=== PATIENT | female | born 1955 | race African-American/Black ===

== ENCOUNTER 2024-01-27 04:56 | Inpatient (IN) | payer OTHER ==
[2024-01-27] MEDS ORDERED: ONDANSETRON 4 MG/2 ML VIAL ONE (05:39)
[2024-01-27] MEDS ORDERED: ACETAMINOPHEN INJECTION 100 ML IVPB ONE (05:39)
[2024-01-27] MEDS: ONDANSETRON 4 MG/2 ML VIAL IVPUSH ONE (05:46)
[2024-01-27] MEDS: ACETAMINOPHEN 1000 MG/100 ML BAG IVPB ONE (05:46)
[2024-01-27 06:01] LABS: BASO % 0.8 % (0-2.0); EOS % 0.8 % (0-4.5); HEMOGLOBIN 10.2 GM/dL (10.7-15.3); LYMPH % 21.1 % (8-40); MCH 29.3 pg (25.7-33.7); MCHC 32.9 g/dl (32.0-36.0); MEAN CELL VOLUME 89.1 fl (80-96); MEAN PLT VOLUME 8.8 fl (7.5-11.1); MONO % 6.7 % (3.8-10.2); NEUT % 70.6 % (42.8-82.8); PLATELET COUNT 206 10^3/uL (134-434); RBC 3.47 M/mm3 (3.60-5.2); RDW 13.1 % (11.6-15.6); WHITE BLOOD COUNT 7.5 K/mm3 (4.0-10.0)
[2024-01-27 06:26] LABS: PROTHROMBIN TIME (PATIENT) 11.3 SEC (9.7-13.0)
[2024-01-27 06:28] LABS: ACTIVATED PTT 31.8 SECONDS (25.2-36.5)
[2024-01-27] MEDS ORDERED: MAGNESIUM SULFATE IN WATER 2 GM/50 ML IVPB IVPB ONE ×2 (06:45→13:27)
[2024-01-27] MEDS: MAGNESIUM 1GM/D5W - 1 GM/100 ML IVPB IVPB ONE (08:00)
[2024-01-27 09:38] LABS: EPI CELLS 2 /uL (0-25.1); HYALINE CASTS 0 /uL (0-3.1); PH,URINE 6.5 (5.0-8.0); URINE APPEARANCE CLEAR; URINE BACTERIA 34 /uL (0-1359); URINE BILIRUBIN NEGATIVE (NEGATIVE); URINE COLOR YELLOW; URINE GLUCOSE (UA) 1+ (NEGATIVE); URINE KETONE NEGATIVE (NEGATIVE); URINE LEUK ESTERASE TRACE (NEGATIVE); URINE NITRITE NEGATIVE (NEGATIVE); URINE PROTEIN NEGATIVE (NEGATIVE); URINE RBC 11 /uL (0-23.9); URINE UROBILINOGEN 0.2 mg/dL (0.2-1.0); URINE WBC 10 /uL (0-25.8)
[2024-01-27] MEDS ORDERED: ACETAMINOPHEN 325 MG TABLET (FP) PO PRN (13:17)
[2024-01-27] MEDS ORDERED: PANTOPRAZOLE 40 MG TABLET PO ONE (13:26)
[2024-01-27] MEDS: PANTOPRAZOLE 40 MG TABLET PO SCH (13:38)
[2024-01-27] MEDS: MAGNESIUM SULF 50% (8.12 MEQ/2 ML-1 GM VIAL) IVPB ONE (13:38)
[2024-01-27 16:07] VITALS: RESP 18
[2024-01-27 16:34] VITALS: BMI 20.8
[2024-01-27] MEDS: D5-1/2NS+10 MEQ KCL - 10 MEQ/1,000 ML INFUS.BAG IV SCH (17:10)
[2024-01-27] MEDS: INSULIN ASPART SLIDING SCALE (NOVOLOG) 1 VIAL SQ SCH (17:14)
[2024-01-27] MEDS: HEPARIN NA (PORCINE) 5,000 UNITS/ML 1ML VIAL SQ SCH (17:15)
[2024-01-27] MEDS: IRON SUCROSE INJECTION 300 MG in SODIUM CHLORIDE 235 ML IVPB ONE (18:04)
[2024-01-28 02:13] VITALS: BP 147/78; PULSE 72; TEMP 98.2
[2024-01-28 07:40] LABS: BASO % 0.9 % (0-2.0); EOS % 1.5 % (0-4.5); HEMATOCRIT 31.1 % (32.4-45.2); HEMOGLOBIN 10.5 GM/dL (10.7-15.3); LYMPH % 32.8 % (8-40); MCH 30.1 pg (25.7-33.7); MCHC 33.8 g/dl (32.0-36.0); MONO % 7.4 % (3.8-10.2); NEUT % 57.4 % (42.8-82.8); PLATELET COUNT 223 10^3/uL (134-434); RBC 3.49 M/mm3 (3.60-5.2); RDW 12.9 % (11.6-15.6); WHITE BLOOD COUNT 6.3 K/mm3 (4.0-10.0)
[2024-01-28 07:41] LABS: POTASSIUM 3.5 mmol/L (3.5-5.1)
[2024-01-28 07:43] LABS: BLOOD UREA NITROGEN 13.4 mg/dL (7-18); CALCIUM 9.4 mg/dL (8.5-10.1); MAGNESIUM 2.1 mg/dL (1.8-2.4)
[2024-01-28 07:46] LABS: CREATININE 0.7 mg/dL (0.55-1.3)
== END 2024-01-28 14:37 | disposition home or self-care (01) | DRG 312 ==
LOC: JER 04:56 → JERBED 06:09 → OBSVTOIN 13:07 → J4W 15:20
PROVIDERS: ADMIT Internal Medicine; ATTEND Internal Medicine
DX: R55 Syncope and collapse (principal); I10 Essential (primary) hypertension; E11.9 Type 2 diabetes mellitus without complications; F03.90 Unspecified dementia, unspecified severity, without behavioral disturbance, psychotic disturbance, mood disturbance, and anxiety; E86.0 Dehydration; E83.42 Hypomagnesemia
CPT/HCPCS: 0241U-QW; 36415; 70450-TC; 71045-TC-FY; 72125-TC; 72170-TC-FY; 73030-TC-LT-FY; 80048; 81003; 82607; 82728; 82962; 83540; 83550; 83735; 84484; 85025; 85610; 85730; 86850; 86900; 86901; 87086; 93005; 93010; 93306-TC; 93880-TC; 97116-GP; 97161-GP; 99285-25; G0378; J0131; J1644; J1756

== ENCOUNTER 2024-02-02 12:47 | Emergency (ER) | payer OTHER ==
[2024-02-02 13:35] VITALS: TEMP 99; BMI 19.3
[2024-02-02 14:42] LABS: EOS % 1.6 % (0-4.5); HEMATOCRIT 31.9 % (32.4-45.2); HEMOGLOBIN 10.5 GM/dL (10.7-15.3); LYMPH % 30.1 % (8-40); MCHC 32.8 g/dl (32.0-36.0); MEAN CELL VOLUME 88.5 fl (80-96); MEAN PLT VOLUME 8.1 fl (7.5-11.1); MONO % 7.8 % (3.8-10.2); NEUT % 59.5 % (42.8-82.8); PLATELET COUNT 225 10^3/uL (134-434); RDW 13.3 % (11.6-15.6)
[2024-02-02 15:08] LABS: POTASSIUM 3.7 mmol/L (3.5-5.1)
[2024-02-02 15:11] LABS: CALCIUM 10.2 mg/dL (8.5-10.1)
[2024-02-02 15:12] LABS: ALBUMIN 3.5 g/dl (3.4-5.0); BLOOD UREA NITROGEN 19.2 mg/dL (7-18)
[2024-02-02 15:15] LABS: CREATININE 0.8 mg/dL (0.55-1.3)
[2024-02-02 15:16] LABS: BILIRUBIN,TOTAL 0.4 mg/dL (0.2-1)
[2024-02-02] MEDS ORDERED: ONDANSETRON 4 MG/2 ML VIAL ONE (17:50)
[2024-02-02] MEDS: ONDANSETRON 4 MG/2 ML VIAL IVPUSH ONE (17:55)
[2024-02-02 18:47] VITALS: BP 135/64; PULSE 69; RESP 18
== END 2024-02-03 00:56 ==
LOC: JER 12:47
PROC: 3E033GC Introduction of Other Therapeutic Substance into Peripheral Vein, Percutaneous Approach (ICD-10-PCS; principal; 2024-02-02)
DX: S09.90XA Unspecified injury of head, initial encounter (principal); M25.511 Pain in right shoulder; W01.198A Fall on same level from slipping, tripping and stumbling with subsequent striking against other object, initial encounter; Z20.822 Contact with and (suspected) exposure to COVID-19
CPT/HCPCS: 0241U-QW; 36415; 70450-TC; 71045-TC-FY; 72125-TC; 73030-TC-RT-FY; 80053; 84484; 85025; 96374; 99285-25

== ENCOUNTER 2024-03-08 02:31 | Inpatient (IN) | payer OTHER ==
[2024-03-08 02:51] VITALS: BMI 24.2
[2024-03-08] MEDS ORDERED: ONDANSETRON 4 MG/2 ML VIAL ONE ×2 (03:10→08:24)
[2024-03-08] MEDS: ONDANSETRON 4 MG/2 ML VIAL IVPUSH ONE (03:13)
[2024-03-08 03:19] LABS: EOS % 1.4 % (0-4.5); HEMATOCRIT 32.4 % (32.4-45.2); HEMOGLOBIN 10.7 GM/dL (10.7-15.3); LYMPH % 30.9 % (8-40); MCHC 33.1 g/dl (32.0-36.0); MEAN CELL VOLUME 87.9 fl (80-96); MEAN PLT VOLUME 8.5 fl (7.5-11.1); NEUT % 59.7 % (42.8-82.8); PLATELET COUNT 221 10^3/uL (134-434); RBC 3.68 M/mm3 (3.60-5.2); WHITE BLOOD COUNT 6.2 K/mm3 (4.0-10.0)
[2024-03-08 03:26] LABS: INR 0.91 (0.83-1.09); PROTHROMBIN TIME (PATIENT) 10.3 SEC (9.7-13.0)
[2024-03-08 03:28] LABS: ACTIVATED PTT 30.7 SECONDS (25.2-36.5)
[2024-03-08 03:58] LABS: ALBUMIN 3.6 g/dl (3.4-5.0); BLOOD UREA NITROGEN 19.9 mg/dL (7-18); CALCIUM 9.7 mg/dL (8.5-10.1)
[2024-03-08 04:03] LABS: CREATININE 0.9 mg/dL (0.55-1.3)
[2024-03-08 04:04] LABS: BILIRUBIN,TOTAL 0.4 mg/dL (0.2-1); TOT PROT 7.2 g/dl (6.4-8.2)
[2024-03-08] MEDS ORDERED: INSULIN ASPART SLIDING SCALE (NOVOLOG) 1 VIAL SQ ONE ×2 (08:25→18:08)
[2024-03-08] MEDS: ONDANSETRON 4 MG/2 ML VIAL IVPUSH PRN (08:32)
[2024-03-08] MEDS: INSULIN ASPART SLIDING SCALE (NOVOLOG) 1 VIAL SQ SCH (08:32)
[2024-03-08] MEDS ORDERED: HYDROCHLOROTHIAZIDE 25 MG TABLET (FP) ONE (11:16)
[2024-03-08] MEDS ORDERED: LOSARTAN POTASSIUM 50 MG TABLET ONE (11:16)
[2024-03-08] MEDS ORDERED: amLODIPine BESYLATE 10 MG TABLET (FP) ONE (11:17)
[2024-03-08] MEDS ORDERED: PANTOPRAZOLE SODIUM 40 MG VIAL ONE (11:17)
[2024-03-08] MEDS: amLODIPine BESYLATE 10 MG TABLET (FP) PO SCH (11:50)
[2024-03-08] MEDS: PANTOPRAZOLE 40 MG TABLET PO SCH (11:50)
[2024-03-08] MEDS: LOSARTAN POTASSIUM 50 MG TABLET PO SCH (11:50)
[2024-03-08] MEDS: HYDROCHLOROTHIAZIDE 12.5 MG CAPSULE (FP) PO SCH (11:50)
[2024-03-08 13:24] LABS: URINE APPEARANCE CLEAR; URINE BILIRUBIN NEGATIVE (NEGATIVE); URINE COLOR YELLOW; URINE GLUCOSE (UA) 2+ (NEGATIVE); URINE KETONE NEGATIVE (NEGATIVE); URINE LEUK ESTERASE NEGATIVE (NEGATIVE); URINE NITRITE NEGATIVE (NEGATIVE); URINE PROTEIN NEGATIVE (NEGATIVE)
[2024-03-08] MEDS: ACETAMINOPHEN 325 MG TABLET (FP) PO PRN (23:30)
[2024-03-09 08:22] LABS: BASO % 0.9 % (0-2.0); EOS % 0.9 % (0-4.5); HEMATOCRIT 34.4 % (32.4-45.2); HEMOGLOBIN 11.7 GM/dL (10.7-15.3); LYMPH % 30.1 % (8-40); MCH 29.7 pg (25.7-33.7); MCHC 34.1 g/dl (32.0-36.0); MEAN CELL VOLUME 87.1 fl (80-96); MEAN PLT VOLUME 8.4 fl (7.5-11.1); MONO % 6.4 % (3.8-10.2); NEUT % 61.7 % (42.8-82.8); PLATELET COUNT 236 10^3/uL (134-434); RBC 3.94 M/mm3 (3.60-5.2); RDW 13.3 % (11.6-15.6); WHITE BLOOD COUNT 5.4 K/mm3 (4.0-10.0)
[2024-03-09] MEDS: ASPIRIN COATED 81 MG TABLET.EC PO SCH (10:03)
[2024-03-09] MEDS: MELATONIN 5 MG TABLETS PO SCH (22:00)
[2024-03-10] MEDS: MEMANTINE HCL 5 MG TABLET (UD) PO SCH (11:31)
[2024-03-11] MEDS ORDERED: ACETAMINOPHEN 325 MG TABLET (FP) PO PRN ×2 (07:47→21:26)
[2024-03-11] MEDS ORDERED: ONDANSETRON 4 MG/2 ML VIAL IVPUSH PRN (07:47)
[2024-03-11] MEDS: LOSARTAN POTASSIUM 50 MG TABLET PO SCH (09:54)
[2024-03-11] MEDS: PANTOPRAZOLE 40 MG TABLET PO SCH (09:54)
[2024-03-11] MEDS: HYDROCHLOROTHIAZIDE 12.5 MG CAPSULE (FP) PO SCH (09:54)
[2024-03-11] MEDS: ASPIRIN COATED 81 MG TABLET.EC PO SCH (09:54)
[2024-03-11] MEDS: amLODIPine BESYLATE 10 MG TABLET (FP) PO SCH (09:54)
[2024-03-11] MEDS: INSULIN ASPART SLIDING SCALE (NOVOLOG) 1 VIAL SQ SCH (17:25)
[2024-03-11] MEDS: LORazepam 2 MG/ML SDV VIAL IVPUSH PRN (18:29)
[2024-03-11] MEDS: MELATONIN 5 MG TABLETS PO SCH (21:22)
[2024-03-12 15:09] VITALS: BP 142/58; PULSE 68; RESP 18; TEMP 98.8
== END 2024-03-12 16:32 | DRG 89 ==
LOC: JER 02:31 → JERBED 05:54 → OBSVTOIN 06:22 → J4S 20:00 → J7W 03-10 19:04
PROVIDERS: ADMIT Internal Medicine; ATTEND Internal Medicine
DX: S06.0XAA Concussion with loss of consciousness status unknown, initial encounter (principal); G91.2 (Idiopathic) normal pressure hydrocephalus; F03.90 Unspecified dementia, unspecified severity, without behavioral disturbance, psychotic disturbance, mood disturbance, and anxiety; I10 Essential (primary) hypertension; F41.9 Anxiety disorder, unspecified; S00.03XA Contusion of scalp, initial encounter; R29.6 Repeated falls; M62.81 Muscle weakness (generalized); R26.81 Unsteadiness on feet; I35.0 Nonrheumatic aortic (valve) stenosis; E11.9 Type 2 diabetes mellitus without complications; G47.00 Insomnia, unspecified; R41.82 Altered mental status, unspecified; W18.30XA Fall on same level, unspecified, initial encounter; Y92.129 Unspecified place in nursing home as the place of occurrence of the external cause; Y99.9 Unspecified external cause status; Z85.038 Personal history of other malignant neoplasm of large intestine
CPT/HCPCS: 36415; 70450-TC; 70551-TC; 71045-TC-FY; 72125-TC; 80053; 81003; 82728; 82962; 83540; 83550; 84484; 85025; 85610; 85730; 86850; 86900; 86901; 87086; 87635; 93005; 93010; 93880-TC; 97116-GP; 97162-GP; 99285-25; G0378